=== PATIENT | female | born 1960 | race African-American/Black ===

== ENCOUNTER → 2016-07-14 | Outpatient (CLI) | payer OTHER | LOC: RAD 16:33 | PROVIDERS: ATTEND Internal Medicine Medical Oncology | DX: C34.32 Malignant neoplasm of lower lobe, left bronchus or lung (principal) | CPT/HCPCS: 78815; A9552 ==

== ENCOUNTER → 2016-07-25 | Outpatient (CLI) | payer OTHER | LOC: RAD 07:05 | PROVIDERS: ATTEND Internal Medicine Medical Oncology | DX: M79.605 Pain in left leg (principal); R10.2 Pelvic and perineal pain | CPT/HCPCS: 72197; A9576 ==

== ENCOUNTER → 2016-09-22 | Outpatient (CLI) | payer OTHER | LOC: RAD 20:36 | PROVIDERS: ATTEND Internal Medicine Medical Oncology | DX: C34.90 Malignant neoplasm of unspecified part of unspecified bronchus or lung (principal) | CPT/HCPCS: 78815; A9552 ==

== ENCOUNTER → 2016-11-28 | Outpatient (CLI) | payer OTHER ==
--- NOTE | 2016-11-28 12:39 | RADIOLOGY REPORT (SQ) ---
EXAM DESCRIPTION: CT CHEST WITH COMPLETED DATE/TIME: 11/28/2016 10:42 am REASON FOR STUDY: LUNG CA (C34.90) C34.90 MALIGNANT NEOPLASM OF UNSP PART OF UNSP BRONCHUS OR L COMPARISON: PET-CT 09/22/2016, 07/14/2016 CT chest 08/31/2014, 03/03/2014 TECHNIQUE: CT scan of the chest performed using helical scanning technique with dynamic intravenous contrast injection. Images reviewed with lung, soft tissue and bone windows. Reconstructed coronal and sagittal MPR images reviewed. All images stored on PACS. All CT scanners at this facility use dose modulation, iterative reconstruction, and/or weight based d osing when appropriate to reduce radiation dose to as low as reasonably achievable (ALARA). [facility]: Dose Right [facility]: CareDose [facility]: Dose Right [facility]: Teradose 4D [facility]: Celmatix CONTRAST TYPE AND DOSE: 80mL Isovue 370- low osmolar. RENAL FUNCTION: Creatinine 0.9 RADIATION DOSE: 16.47 mGy. LIMITATIONS: None. FINDINGS: LUNGS AND PLEURA: Post left pneumonectomy. No left pleural effusion right lung well infla jennifer and grossly clear. No infiltrates. No pulmonary nodules. No pleural effusion. HILAR AND MEDIASTINAL STRUCTURES: Surgical clips left hilum post lobectomy. There is a stable 2 cm pretracheal/precarinal lymph node. This is unchanged in size compared to 09/22 and 07/14/2016 HEART AND VASCULAR STRUCTURES: No aneurysm or dissection. No central pulmonary emboli. No pericardi al effusion. HARDWARE: Left-sided permanent central line tip in the right atrium. UPPER ABDOMEN: 2 cm cyst sub- diaphragmatic surface left lobe liver unchanged. 1.4 cm cyst caudate l obe unchanged. Clips post cholecystectomy. THYROID AND OTHER SOFT TISSUES: No masses. No adenopathy. BONES: No significant finding. OTHER: No other significant finding. IMPRESSION: Post left pneumonectomy. Stable 2 cm pretracheal/precarinal lymph node TECHNICAL DOCUMENTATION: JOB ID: [id number] Quality ID # [id number]: Final reports with documentation of one or more dose reduction techniques (e.g., Au tomated exposure control, adjustment of the mA and/or kV according to patient size, use of iterative reconstruction technique) 2010 [employer]- All Rights Reserved
== END ==
LOC: RAD 09:51
PROVIDERS: ATTEND Internal Medicine Medical Oncology
DX: C34.90 Malignant neoplasm of unspecified part of unspecified bronchus or lung (principal)
CPT/HCPCS: 71260; 82565

== ENCOUNTER → 2016-12-10 | Outpatient (CLI) | payer OTHER ==
--- NOTE | 2016-12-10 15:57 | RADIOLOGY REPORT (SQ) ---
EXAM DESCRIPTION: NM WHOLE BODY BONE SCAN COMPLETED DATE/TIME: 12/10/2016 1:46 pm REASON FOR STUDY: LUNG AND BONE CA C34.90 MALIGNANT NEOPLASM OF UNSP PART OF UNSP BRONCHUS OR L COMPARISON: No available imaging studies for comparison. RADIONUCLIDE AND DOSE: 21.8 millicuries Tc99m HDP. The route of agent administration: Intravenous. ADDITIONAL DRUGS AND DOSES: None. TECHNIQUE: Routine delayed images at 3 hour post radionuclide injection acquired of the bony skeleto n including anterior and posterior whole-body projections and additional focused images as needed. LIMITATIONS: None. FINDINGS: BONES: Areas of activity in medial knee bilaterally and in both shoulders consistent with degenerative joint disease. Focal area of activity in the anterior left 7th rib. No other areas of abnormal bony activity. KIDNEYS: Symmetric excretion without obstruction. OTHER: No other significant finding. IMPRESSION: FOCALLY AREA OF ACTIVITY IN THE ANTERIOR LEFT 7TH RIB WHICH MAY BE DUE TO PRIOR TRAUMA O R FOCAL INFLAMMATION. ACTIVITY IN THE SHOULDERS AND KNEES CONSISTENT WITH DEGENERATIVE JOINT DISEASE . NO BONY LESIONS WORRISOME FOR METASTATIC INVOLVEMENT. COMMENT: PQRS [id number]: Current bone scan is compared with any available plain radiographs, prior bone scans, and CT/MRI. TECHNICAL DOCUMENTATION: JOB ID: [id number] [employer]- All Rights Reserved
== END ==
LOC: RAD 08:53
PROVIDERS: ATTEND Internal Medicine Medical Oncology
DX: C34.90 Malignant neoplasm of unspecified part of unspecified bronchus or lung (principal); C79.51 Secondary malignant neoplasm of bone
CPT/HCPCS: 78306; A9561; Q9969

== ENCOUNTER → 2016-12-15 | Outpatient (CLI) | payer OTHER ==
--- NOTE | 2016-12-16 08:34 | RADIOLOGY REPORT (SQ) ---
EXAM DESCRIPTION: PET CT SKULL/THIGH COMPLETED DATE/TIME: 12/15/2016 11:01 pm REASON FOR STUDY: LUNG CANCER C34.90 MALIGNANT NEOPLASM OF UNSP PART OF UNSP BRONCHUS OR L COMPARISON: 09/22/2016 and 07/14/2016. RADIONUCLIDE AND DOSE: 12.0 mCi F18 FDG The route of agent administration: Intravenous FASTING BLOOD SUGAR: 74 mg/dl CONTRAST TYPE AND DOSE: No CT contrast given. TECHNIQUE: Blood glucose level was verified. Above dose of FDG was injected intravenously. 2-D seg mented attenuation correction images were obtained from the base of the skull to the midthighs. Nonc ontrast CT images were obtained for attenuation correction and fusion with emission images. CT image s were performed without oral or intravenous contrast and are not sensitive for parenchymal lesions. A series of overlapping emission PET images were obtained. Images reviewed and manipulated at [facility] work station by the radiologist. Images stored on PACS. LIMITATIONS: None. FINDINGS: HEAD AND NECK: No areas of abnormal metabolic activity in the soft tissues of the head and neck. CHEST: Left pneumonectomy. 1.9 cm lymph node in the superior mediastinum. Mean SUV value 19.73 with prior value of 11.3. Soft tissue mass or confluent adenopathy in the subcarinal region measuring 1. 6 x 4.6 cm. Mean SUV value 9.09 with prior value of 4.5. ABDOMEN AND PELVIS: No areas of abnormal metabolic activity in the abdomen or pelvis. Expected physi ologic activity is present in the genitourinary system and bowel. PROXIMAL LOWER EXTREMITIES: No areas of abnormal metabolic activity in the soft tissues of the lower extremities. BONES: Focal area of increased activity in the left iliac crest. Mean SUV value 2.79. Prior value 7 .47. Focal sclerotic area on CT imaging. ADDITIONAL CT FINDINGS: Stable heterogenous enlargement of the thyroid. Stable hepatic cysts. No ad ditional significant findings on the noncontrast CT images. OTHER: No other significant findings. IMPRESSION: MORPHOLOGICALLY STABLE ADENOPATHY/SOFT TISSUE MASSES IN THE CHEST. HOWEVER, SUV VALUES HAVE INCREASED SINCE THE PRIOR STUDY. LESION IN LEFT ILIAC CREST HAS DECREASED ACTIVITY. NO NEW LES IONS. NO ABNORMAL ACTIVITY ELSEWHERE. TECHNICAL DOCUMENTATION: JOB ID: [id number]- All Rights Reserved
== END ==
LOC: RAD 20:00
PROVIDERS: ATTEND Internal Medicine Medical Oncology
DX: C34.90 Malignant neoplasm of unspecified part of unspecified bronchus or lung (principal)
CPT/HCPCS: 78815; A9552

== ENCOUNTER 2017-02-19 11:49 | Emergency (ER) | payer OTHER ==
--- NOTE | 2017-02-19 12:07 | ER Document Report ---
ED General - General Stated Complaint: BLOOD PRESSURE ISSUE Time Seen by Provider: 02/19/17 11:57 Notes: Patient was transferred here from radiation oncology after she collapsed getting off of the treatment table. She was noted to have very low blood pressures with systolics between 60 and 80 and diastolics down to 39. Patient was recommended to have IV fluids on Friday, but she declined. Patient has stage IV lung cancer with metastases to adjacent structures as well as to her brain. She was originally diagnosed in 2011. Patient says she feels "great". Denies any symptoms. Says she has been eating and drinking well. Does not have any pain anywhere. Denies chest pain, abdominal pain, nausea or vomiting. Denies any shortness of breath or difficulty breathing . Denies any fevers. Has not been passing any black stools. Has not seen any bleeding anywhere. PMH: CHF. Has a port. TRAVEL OUTSIDE OF THE [place] IN LAST 30 DAYS: No - Related Data Allergies/Adverse Reactions: No Known Allergies Allergy (Verified 01/05/15 08:22) Past Medical History - Social History Smoking Status: Never Smoker Family History: Reviewed & Not Pertinent, Other - CHF, thyroid problems - Past Medical History Cardiac Medical History: Denies: Hx Atrial Fibrillation, Hx Congestive Heart Failure, Hx Coronary Artery Disease, Hx Heart Attack, Hx Hypercholesterolemia Pulmonary Medical History: Reports: Hx Asthma, Hx COPD Denies: Hx Bronchitis, Hx Pneumonia Endocrine Medical History: Denies: Hx Diabetes Mellitus Type 1, Hx Diabetes Mellitus Type 2 Musculoskeltal Medical History: Reports Hx Arthritis - Rheumatoid Past Surgical History: Reports: Hx Cholecystectomy, Hx Hysterectomy, Hx Tonsillectomy - Immunizations Hx Diphtheria, Pertussis, Tetanus Vaccination: Yes - Unknown Review of Systems - Review of Systems Notes: REVIEW OF SYSTEMS: CONSTITUTIONAL : Denies fever. EENT: Denies eye, ear, nose or mouth or throat pain or other symptoms. CARDIOVASCULAR: Denies chest pain. RESPIRATORY: Denies cough, chest congestion, or shortness of breath. GASTROINTESTINAL: Denies abdominal pain or nausea, vomiting, or diarrhea. Patient says she has been eating well and drinking plenty of fluids. GENITOURINARY: Denies difficulty or painful urinating, urinary frequency, blood in urine. Passing normal amount of urine. MUSCULOSKELETAL: Denies back or neck pain. Denies joint pain or swelling. SKIN: Denies rash or skin lesions. NEUROLOGICAL: Denies LOC or altered mental status. Denies headache. Denies sensory loss or motor deficits. ALL OTHER SYSTEMS REVIEWED AND NEGATIVE. Physical Exam - Vital signs Vitals: Resp BP Pulse Ox 21 H 84/45 L 95 02/19/17 11:58 02/19/17 11:58 02/19/17 11:58 Interpretation: Hypotensive - Notes Notes: PHYSICAL EXAMINATION: GENERAL: Well-appearing, in no acute distress. HEAD: Atraumatic, normocephalic. EYES: Pupils equal round and reactive to light, extraocular movements intact. ENT: oropharynx clear without exudates. Moist mucous membranes. NECK: Normal range of motion, supple. LUNGS: Breath sounds clear and equal bilaterally. HEART: Regular rate and rhythm without murmurs. Not tachycardic. ABDOMEN: Soft, nontender. No guarding or rebound. BACK: No tenderness throughout entire back. EXTREMITIES: Normal range of motion without pain. No pain or swelling. Negative Homans bilaterally. NEUROLOGICAL: Normal speech, normal gait. Normal sensory, motor, and reflex exams. Awake, alert, and oriented x3. Cranial nerves normal. PSYCH: Normal mood, normal affect. Patient is very pleasant and cooperative. SKIN: Warm, dry, no rashes. Course - Re-evaluation Re-evalutation: 02/19/17 19:49 Patient's initial blood pressures were about 85-90 systolic. We initiated fluid therapy with normal saline. Over the next 4-5 hours, patient received 3 L of saline. Her blood pressure gradually climbed to where it was stabilizing around 100 which is slightly below that. She was able to stand and walk to the bathroom without any assistance. Urinated several times. Able to eat dinner and drink fluids without problems. I attempted to contact Dr. Temple, but did not get a reply. I wanted to discuss patient going home for tonight and follow-up and the patient informs me that she has an appointment to see Dr. Cnythia Kirkland tomorrow. Patient also happens to have her lab values from 1 week ago, February 13, at which time she had a white count of 5100, hemoglobin 10.6, and platelet count of 70. Her labs here today show a white count of 2500, hemoglobin of 8.8, and platelet count of 81. I think the patient's hemoglobin of 8.8 is probably stable and somewhat dilutional as it was drawn after the patient had received a 3 L of saline. Additionally, after the patient was discharged home, Dr. Temple did return the call around 7:30 PM. I told her about the patient and all of her labs and she said she would recheck everything tomorrow when she sees her in the office. Incidentally, patient was noted to have a potassium of 3.0. It was 3.4 last week. I gave her 40 mEq of potassium chloride p.o. and advised her to drink and eat high potassium foods. - Vital Signs Vital signs: Temp Pulse Resp BP Pulse Ox 98.1 F 17 90/67 L 97 02/19/17 12:15 02/19/17 17:46 02/19/17 17:46 02/19/17 17:46 - Laboratory Result Diagrams: 02/19/17 16:42 02/19/17 12:35 Laboratory results interpreted by me: 02/19/17 02/19/17 12:35 16:42 WBC 2.5 L RBC 2.50 L Hgb 8.8 L Hct 26.3 L MCV 105 H MCH 35.3 H RDW 17.4 H Plt Count 81 L Absolute Lymphocytes 0.4 L Sodium 132.3 L Potassium 3.0 L* Chloride 93 L Carbon Dioxide 32 H BUN 25 H Est GFR (Non-Af Amer) 55 L Calcium 7.9 L Direct Bilirubin 0.5 H Total Protein 4.8 L Albumin 2.7 L Discharge - Discharge Clinical Impression: Anemia, Lung cancer Hypotension Qualifiers: Hypotension type: idiopathic hypotension Qualified Code(s): I95.0 - Idiopathic hypotension Condition: Stable Disposition: HOME, SELF-CARE Additional Instructions: Hypotension Your blood pressure is low. Low blood pressure can make you feel weak, lightheaded, and even make you pass out. Low blood pressure can be caused by dehydration or blood loss. Problems with the heart, kidneys, or blood vessels can cause hypotension. Certain medications can make your blood pressure abnormally low. Infection can lower blood pressure. In many cases, the person is totally healthy, but for unknown reasons, the blood pressure falls when they stand up. This is called benign orthostatic hypotension. The treatment of low blood pressure depends on the severity of the symptoms , and on the underlying cause. Sometimes it's not possible to identify a cause. At this time, it doesn't appear that the problem is serious enough to require hospitalization. Medicines that could be contributing to the problem can be withheld or reduced in dosage if your doctor approves. Get plenty of fluids. Eat a healthy diet. Be careful to stand up slowly. If you feel suddenly lightheaded or if your vision goes isaac, sit or lie down at once. Don't drive or operate machinery until the symptoms are under control. Return or call the doctor if you develop fainting or severe dizziness, severe weakness, problems with vision, chest pain, shortness of breath, fever, or confusion. Anemia You have been found to have a significant anemia (a lower than normal amount of red blood cells). Anemia can be due to iron deficiency, vitamin deficiency, abnormal bleeding, or internal diseases. Usually, further tests are necessary to find the exact cause of the anemia. The most common cause of anemia is iron deficiency, often brought on by blood loss. This can be treated with iron supplements. If this appears to be the most likely cause, iron tablets may be prescribed even before all tests are complete. Contact the doctor at once if you note black or tarry-looking stools, bloody vomiting, shortness of breath, chest pain, or faintness. Dehydration Dehydration can result from vomiting or diarrhea, fever, or decreased intake of fluids. If severe, hospitalization and intravenous fluids may be required. Most cases are treated at home with fluids by mouth. For the next 24 hours, drink lots of clear fluids. In mild cases, this can be soda pop or sports drinks. For more severe dehydration, the doctor may recommend special fluids such as Pedialyte or Lytren. Try to get three liters ( 3 quarts) of fluid per day. If vomiting occurs, continue to drink the fluids frequently (every 15 to 20 minutes), but in small amounts (one or two ounces). Depending on the type of dehydration, the doctor may prescribe antinausea medicine or potassium replacements. Call the doctor or return for re-examination if you become progressively weak, vomit repeatedly, or have other new symptoms. INTRAVENOUS (I V) FLUIDS: As part of your care today, you received intravenous (IV) fluids. IV fluids are administered to patients who are dehydrated or to those who have certain chemical (electrolyte) abnormalities that need correcting. FOLLOW-UP CARE: If you have been referred to a physician for follow-up care, call the physician s office for an appointment as you were instructed or within the next two days. If you experience worsening or a significant change in your symptoms, notify the physician immediately or return to the Emergency Department at any time for re-evaluation. Keep your appointment to see Dr. Temple tomorrow as scheduled. Referrals: BRADFORD BRENNER PA [Primary Care Provider] - Follow up as needed IVAN TEMPLE MD [ACTIVE STAFF] - Follow up tomorrow
[2017-02-19] MEDS ORDERED: NORMAL SALINE 1000 ML 1,000 ML IV ONE ×3 (12:16→15:48)
[2017-02-19 13:29] LABS: ALANINE AMINOTRANSFERASE 46 U/L (9-52); ALBUMIN 2.7 g/dL (3.5-5.0); ALKALINE PHOSPHATASE 64 U/L (38-126); ANION GAP 7 (5-19); ASPARTATE AMINO TRANSFERASE 32 U/L (14-36); BILIRUBIN,DIRECT 0.5 mg/dL (0.0-0.4); BILIRUBIN,TOTAL 0.9 mg/dL (0.2-1.3); BLOOD UREA NITROGEN 25 mg/dL (7-20); CALCIUM 7.9 mg/dL (8.4-10.2); CARBON DIOXIDE 32 mmol/L (22-30); CHLORIDE 93 mmol/L (98-107); CREATININE RESULT 1.03 mg/dL (0.52-1.25); GLUCOSE 81 mg/dL (75-110); SODIUM 132.3 mmol/L (137-145); TOTAL PROTEIN 4.8 g/dL (6.3-8.2)
[2017-02-19 13:40] LABS: TROPONIN I 0.013 ng/mL
[2017-02-19 13:58] LABS: CREATINE KINASE MB < 0.22 ng/mL (<4.55)
[2017-02-19] MEDS ORDERED: POTASSIUM CHLORIDE 10 MEQ TABLET.SA PO ONE (14:02)
[2017-02-19 16:56] LABS: ABSOLUTE LYMPHOCYTES (AUTO) 0.4 10^3/uL (0.5-4.7); ABSOLUTE MONOCYTES (AUTO) 0.3 10^3/uL (0.1-1.4); ABSOLUTE NEUT (AUTO) 1.8 10^3/uL (1.7-8.2); BASOPHILS % (AUTO) 0.4 % (0-2); EOSINOPHILS % (AUTO) 0.4 % (0-6); HEMATOCRIT 26.3 % (36.0-47.0); HEMOGLOBIN 8.8 g/dL (12.0-15.5); HGB HCT DIFFERENCE 0.1; LYMPHOCYTES % (AUTO) 14.3 % (13-45); MEAN CORPUSCULAR HEMOGLOBIN 35.3 pg (27.0-33.4); MEAN CORPUSCULAR HGB CONC 33.5 g/dL (32.0-36.0); MEAN CORPUSCULAR VOLUME 105 fl (80-97); RED CELL DISTRIBUTION WIDTH 17.4 % (11.5-14.0); SEGMENTED NEUTROPHILS % (AUTO) 71.9 % (42-78); WHITE BLOOD COUNT 2.5 10^3/uL (4.0-10.5)
[2017-02-19 17:23] LABS: APPEARANCE,URINE CLEAR; BILIRUBIN,URINE NEGATIVE (NEGATIVE); GLUCOSE, URINE NEGATIVE (NEGATIVE); KETONES,URINE NEGATIVE (NEGATIVE); LEUKOCYTE ESTERASE,URINE NEGATIVE (NEGATIVE); NITRITE,URINE NEGATIVE (NEGATIVE); PROTEIN,URINE NEGATIVE (NEGATIVE); URINE SPECIFIC GRAVITY 1.003; UROBILINOGEN,URINE NEGATIVE mg/dL (<2.0)
[2017-02-19 17:54] VITALS: BP 90/67
--- NOTE | 2017-02-19 21:52 | EKG REPORT ---
SEVERITY:- NORMAL ECG - SINUS RHYTHM LVH WITH SECONDARY REPOL ABNRM VS ISCHEMIA : Confirmed by: Radha Banda 19-Feb-2017 21:51:09
== END 2017-02-19 18:52 | disposition home or self-care (01) ==
LOC: ER 11:49
DX: I95.0 Idiopathic hypotension (principal); C34.90 Malignant neoplasm of unspecified part of unspecified bronchus or lung; C79.31 Secondary malignant neoplasm of brain; J44.9 Chronic obstructive pulmonary disease, unspecified; D64.9 Anemia, unspecified
CPT/HCPCS: 93005; 36591; 99285; 36415; 82553; 85025; 80053; 81001; 84484; 93010; J7030